=== PATIENT | female | born 1975 | race Two or more races ===

== ENCOUNTER 2018-08-13 12:19 | Emergency (ER) | payer MEDICAID ==
[~2018-08-13] VITALS: Ht 154.9 cm; Wt 73.0 kg
[2018-08-13 12:41] VITALS: BP 160/97
== END 2018-08-13 13:21 | disposition home or self-care (01) ==
LOC: ER 12:27
DX: B02.9 Zoster without complications (principal); I12.9 Hypertensive chronic kidney disease with stage 1 through stage 4 chronic kidney disease, or unspecified chronic kidney disease; N18.9 Chronic kidney disease, unspecified